=== PATIENT | female | born 1985 ===

== ENCOUNTER 2019-10-13 18:58 | Outpatient (REF) | payer MEDICAID, SELFPAY ==
[2019-10-13 19:31] LABS: Vitamin D 25 Total 30.1 ng/ml (30-100)
== END 2019-10-13 19:18 ==
LOC: NCHCN 18:58
PROVIDERS: Visit Provider Physician Assistant
DX: E55.9 Vitamin D deficiency, unspecified (principal)
CPT/HCPCS: 82306